=== PATIENT | female | born 1945 | race Asian ===

== ENCOUNTER 2020-05-24 21:19 | Inpatient (IN) | payer MEDICAID, OTHER ==
[~2020-05-24] VITALS: Ht 157.5 cm; Wt 50.8 kg
--- NOTE | 2020-05-24 22:13 | NUR ---
[id number] FROM [facility] AND CARE C/O GENERALIZED WEAKNESS AND LOSS OF APPETITE. PT MISSED DIALYSIS DUE TO THE HOLIDAY. PT PLACED IN BED, LINE ESTABLISHED RAC 20G, BLOOD DRAW, SENT TO LAB. PT ON MONITOR AND PULSE OX. AWAITING FOR MD MAYORGA AND ORDERS. WILL CONTINUE TO MONITOR.
--- NOTE | 2020-05-24 23:00 | NUR ---
COVID SWAB COLLECTED AND SENT TO LAB
[2020-05-25] LABS: BASOPHILS % (AUTO) 0.2 % (0.0-2.0); HEMATOCRIT 37 % (33-45); HEMOGLOBIN 12.4 g/dL (11.5-14.8); LYMPHOCYTES # (AUTO) 0.4 /CMM (0.8-4.8); LYMPHOCYTES % (AUTO) 9.1 % (20.0-44.0); MEAN CORPUSCULAR HGB CONC 33 g/dl (31.0-36.0); MEAN CORPUSCULAR VOLUME 107 fL (82-100); MONOCYTES # (AUTO) 0.3 /CMM (0.1-1.30); NEUTROPHILS # (AUTO) 3.3 /CMM (1.8-8.9); NEUTROPHILS % (AUTO) 82.7 % (43.0-81.0); PLATELET COUNT (AUTO) 157 /CMM (150-450); RED BLOOD CELL COUNT(AUTO) 3.46 MIL/uL (4.0-5.2)
[2020-05-25 00:17] LABS: ALANINE AMINOTRANSFERASE 22 U/L (12-78); ALBUMIN 3.3 g/dL (3.4-5.0); ALKALINE PHOSPHATASE 77 U/L (46-116); ASPARTATE AMINOTRANSFERASE 35 U/L (15-37); BILIRUBIN,DIRECT 0.1 mg/dL (0.0-0.2); BILIRUBIN,TOTAL 0.5 mg/dL (0.2-1.0); CALCIUM, SERUM 7.7 mg/dL (8.5-10.1); CARBON DIOXIDE 23 mmol/L (21-32); CHLORIDE 99 mmol/L (98-107); CREATININE 7.6 mg/dL (0.6-1.3); GLUCOSE 169 mg/dL (74-106); SODIUM SERUM 135 mmol/L (136-145); TOTAL PROTEIN, SERUM 7.9 g/dL (6.4-8.2); UREA NITROGEN, BLOOD 47 mg/dL (7-18)
--- NOTE | 2020-05-25 00:29 | NUR ---
LAB CALLED REGARDING POSITIVE COVID RESULT.
[2020-05-25] MEDS ORDERED: ACETAMINOPHEN 325 MG TABLET ONE (02:20)
[2020-05-25] MEDS ORDERED: ACETAMINOPHEN 325 MG TABLET PO ONE (02:30)
--- NOTE | 2020-05-25 04:19 | NUR ---
PT RESTING COMFORTABLY. VSS. SAT 94-97% ON ROOM AIR. PROVIDED WITH BLANKETS AND PILLOW.
[2020-05-25] MEDS ORDERED: DEXAMETHASONE SOD PHOSPHATE 10 MG/ML VIAL IV STA (05:25)
[2020-05-25] MEDS ORDERED: CEFTRIAXONE 1GM BAG (ER ONLY) 50 ML IV ONE (05:34)
[2020-05-25] MEDS ORDERED: AZITHROMYCIN 500 MG VIAL ONE (05:35)
[2020-05-25] MEDS ORDERED: DEXAMETHASONE SOD PHOSPHATE 10 MG/ML VIAL ONE (05:35)
[2020-05-25] MEDS: AZITHROMYCIN 500 MG in IV D5W 250 ML IV SCH (05:50)
[2020-05-25] MEDS ORDERED: Z GUARD REMEDY 2 OZ OINT TP PRN (06:30)
[2020-05-25] MEDS ORDERED: ZOLPIDEM TARTRATE 5 MG TABLET PO PRN (06:30)
[2020-05-25] MEDS ORDERED: ACETAMINOPHEN 325 MG TABLET PO PRN (06:30)
[2020-05-25] MEDS ORDERED: HYDROCODONE/APAP 5/325MG TABLET PO PRN (06:30)
[2020-05-25] MEDS ORDERED: MAGNESIUM HYDROXIDE 30 ML UDC PO PRN (06:30)
[2020-05-25] MEDS ORDERED: ONDANSETRON HCL/PF 4 MG/2 ML VIAL IVP PRN (06:30)
[2020-05-25] MEDS ORDERED: hydrALAZINE HCL 10 MG TABLET ONE (06:33)
[2020-05-25] MEDS: hydrALAZINE HCL 10 MG TABLET PO SCH ×3 (06:39→21:46)
--- NOTE | 2020-05-25 06:58 | NUR ---
PT REMAINS ON ROOM AIR SAT 94-98%. NO SOB NOTED. PT DOES HAVE A HIGH BP, HYDRALAZINE PO GIVEN. WILL CONTINUE TO MONITOR PT.
--- NOTE | 2020-05-25 07:41 | NUR ---
REPORT GIVEN TO SARAH BHAKTA FOR NEERAJ
[2020-05-25] MEDS ORDERED: HEPARIN SODIUM, PORCINE 5000 UNITS/1 ML VIAL ONE (08:40)
[2020-05-25] MEDS: HEPARIN SODIUM, PORCINE 5000 UNITS/1 ML VIAL SQ SCH ×2 (08:43→21:47)
--- NOTE | 2020-05-25 08:51 | NUR ---
PATIENT ASLEEP BUT EASILY AROUSABLE. NO DISTRESS NOTED. NEEDS ATTENDED. WILL COTNINUE TO MONITOR.
--- NOTE | 2020-05-25 12:19 | NUR ---
Per Nursing Sup [facility] 209-bed 1
--- NOTE | 2020-05-25 13:26 | NUR ---
ATTEMPTED TO GIVE REPORT TWICE, NURSES ARE UNABLE TO TAKE REPORT. PATIENT TRANSFERRED TO ROOM 209-1 VIA ACLS PROTOCOL.
--- NOTE | 2020-05-25 13:31 | NUR ---
REPORT GIVEN TO MADISON BHAKTA FOR NEERAJ.
--- NOTE | 2020-05-25 14:15 | NUR ---
TELE/RN NOTES RECEIVED REPORT FROM [facility] NURSE. PATIENT IS ALERT AND ORIENTED X4. PATIENT IN NO APPARENT RESPIRATORY DI TRESS NOTED. COMPLAINED OF PAIN RATED 9/10. INITIAL ASSESSMENT WAS DONE. WILL CONTINUE TO MONITOR.
[2020-05-25 16:40] VITALS: BP 161/65
[2020-05-25] MEDS ORDERED: INSULIN REGULAR, HUMAN 100 UNIT/ML 3 ML VIAL SQ PRN (19:30)
[2020-05-25] MEDS ORDERED: DEXTROSE 50%-WATER 50 ML DISP.SYRIN IV PRN (19:30)
--- NOTE | 2020-05-25 19:30 | NUR ---
TELE/RN CLOSING NOTES RECEIVED PATIENT IN BED RESTING. PATIENT ALERT AND ORIENTED X 4. PATIENT IN NO APPARENT RESPIRATORY DISTRESS NOTED. NO COMPLAINED OF PAIN AT THIS TIME. TELE MONITOR READING SINUS RHYTHM. IV ACCESS AT LEFT FOREARM # 18 G PATENT AND INTACT. SAFETY PRECAUTIONS WAS IN PLACED. BED IN LOWEST POSITION AND LOCKED. SIDERAILS UP X2. WILL CONTINUE TO MONITOR.
--- NOTE | 2020-05-25 19:46 | NUR ---
TELE/RN CLOSING NOTES PATIENT IS ON BED. ALERT AND ORIENTED X4. PATIENT IS ON ROOM AIR, SATURATION 95%. PATIENT IN NO APPARENT RESPIRATORY DISTRESS NOTED. NO COMPLAINED OF PAIN AT THIS TIME. TELE MONITOR READING SINUS RHYTHM 69 BPM.SEEN AND EXAMINED BY MD WITH ORDERS MADE AND CARRIED OUT. ALL DUE MEDICATIONS WAS GIVEN. IV ACCESS AT LEFT FOREARM # 18 G PATENT AND INTACT. SAFETY PRECAUTIONS WAS IN PLACED. BED IN LOWEST POSITION AND LOCKED. SIDERAILS UP X2. WILL ENDORSED TO COLLEGE ADMISSIONS COUNSELOR FOR NEERAJ.
[2020-05-25 20:00] VITALS: BP 106/54
[2020-05-25] MEDS: BLOOD SUGAR DIAGNOSTIC 1 EACH STRIP IN SCH (21:55)
[2020-05-26] VITALS: BP 132/56
[2020-05-26 04:00] VITALS: BP 112/60
[2020-05-26] MEDS: hydrALAZINE HCL 10 MG TABLET PO SCH ×2 (05:00→05:05)
[2020-05-26] MEDS: AZITHROMYCIN 500 MG in IV D5W 250 ML IV SCH (05:04)
[2020-05-26] MEDS ORDERED: CEFTRIAXONE 1 G in IV D5W 50 ML IV SCH (05:30)
[2020-05-26] MEDS: BLOOD SUGAR DIAGNOSTIC 1 EACH STRIP IN SCH (06:26)
--- NOTE | 2020-05-26 06:55 | NUR ---
TELE/RN CLOSING NOTES PATIENT IN BED RESTING. PATIENT ALERT AND ORIENTED X 4. PATIENT IN NO APPARENT RESPIRATORY DISTRESS NOTED. TELE MONITOR READING SINUS RHYTHM. IV ACCESS AT RIGHT AC PATENT AND INTACT. ALL PATIENTS NEEDS HAVE BEEN MET DURING SHIFT. SAFETY MEASURES ARE IN PLACE, CALL LIGHT IS WITHIN REACH, BED IS LOCKED AND PLACED IN THE LOWEST POSITION, SIDE RAILS UP X 2. WILL ENDORSE CARE TO DAY SHIFT NURSE.
--- NOTE | 2020-05-26 08:45 | NUR ---
RN Opening note Received patient AO x 4, able to responds all stimuli. patient c/o nauseate and vomiting and given Zofran 4mg via IV, heparin and Decadron. Stable v.s: t-99.0, bp-149/86, p-85, r-20, O2sat 93% on room air. Skin is warm to touch keep clean/dry, intact IV site, respiratory even and unlabored on room air. Kept elevated HOB for ensure airway and aspiration precaution, also lowest bed position for safety. Call light within reach, will continue to monitor.
[2020-05-26] MEDS ORDERED: DEXAMETHASONE SOD PHOSPHATE 10 MG/ML VIAL IV SCH (09:00)
[2020-05-26] MEDS: HEPARIN SODIUM, PORCINE 5000 UNITS/1 ML VIAL SQ SCH (09:02)
[2020-05-26] MEDS ORDERED: CALCIUM CHLORIDE 1,000 MG/10 ML DISP.SYRIN ONE (10:00)
[2020-05-26] MEDS ORDERED: SODIUM BICARBONATE SYR 50 MEQ/50 ML DISP.SYRIN ONE (10:00)
[2020-05-26] MEDS ORDERED: EPINEPHRINE (1:10,000) SYRINGE 1 MG/10 ML DISP.SYRIN ONE (10:00)
--- NOTE | 2020-05-26 11:00 | NUR ---
Per SOUND ENGINEERING TECHNICIAN in to room 209-1 noticed patient unresponsive with pale skin color, paged code blue and started CPR. Patient terminated at 1008, informed DTR/Vi regarding above, DTR/Vi picked up belongings around 1224pm and signed on form belongings included gold color ring x1, denture upper/lower for each, cell x 1, and clothes. Called Anthony/Lizette received Case #:[id number].
== END 2020-05-26 15:37 | disposition expired | DRG 137 ==
LOC: ER 21:21 → TRANSITION 05-25 00:59 → TELE2 05-25 12:28
PROVIDERS: ADMIT Nurse Practitioner Acute Care; ATTEND Nurse Practitioner Acute Care
PROC: 0BH18EZ Insertion of Endotracheal Airway into Trachea, Via Natural or Artificial Opening Endoscopic (ICD-10-PCS; principal; 2020-05-26)
PROC: 5A12012 Performance of Cardiac Output, Single, Manual (ICD-10-PCS; 2020-05-26)
DX: U07.1 COVID-19 (principal); I12.0 Hypertensive chronic kidney disease with stage 5 chronic kidney disease or end stage renal disease; N18.6 End stage renal disease; Z99.2 Dependence on renal dialysis; D63.1 Anemia in chronic kidney disease; E11.22 Type 2 diabetes mellitus with diabetic chronic kidney disease; E87.70 Fluid overload, unspecified; E78.5 Hyperlipidemia, unspecified; I16.0 Hypertensive urgency; N25.0 Renal osteodystrophy; J12.82 Pneumonia due to coronavirus disease 2019
CPT/HCPCS: 36415; 71045-TC; 80048-TC; 80076-TC; 82962-TC; 84484-TC; 85025-TC; 85730-TC; 86850-TC; 87081-TC; 90935-TC; C9803; G0378; J0171; J0456; J0696; J1100; J1644; J1815; J2405; J3490; J7030; J7060; U0003